=== PATIENT | male | born 1985 | race Caucasian/White ===

== ENCOUNTER 2023-10-03 22:43 | Emergency (ER) | payer SELFPAY ==
[~2023-10-03] VITALS: Ht 170.2 cm; Wt 76.0 kg
[2023-10-03 22:50] VITALS: O2SAT 98
[2023-10-03] MEDS ORDERED: BO1 TP (23:22)
[2023-10-04 01:20] VITALS: BP 130/75; PULSE 92; RESP 16; TEMP 36.83628; O2SAT 98
== END 2023-10-04 01:20 | disposition home or self-care (01) ==
LOC: ER 22:43
DX: S61.011A Laceration without foreign body of right thumb without damage to nail, initial encounter (principal); E78.00 Pure hypercholesterolemia, unspecified; X58.XXXA Exposure to other specified factors, initial encounter; Y93.89 Activity, other specified; Y92.89 Other specified places as the place of occurrence of the external cause; Y99.8 Other external cause status
CPT/HCPCS: 99283